=== PATIENT | female | born 1960 | race Caucasian/White ===

== ENCOUNTER → 2017-07-16 | Outpatient (CLI) | payer OTHER | END | disposition home or self-care (01) | LOC: CDC 10:28 | DX: Z01.810 Encounter for preprocedural cardiovascular examination (principal); N60.81 Other benign mammary dysplasias of right breast; R00.0 Tachycardia, unspecified; R94.31 Abnormal electrocardiogram [ECG] [EKG] | CPT/HCPCS: 93000 ==

== ENCOUNTER 2017-07-25 06:04 | Day surgery (SDC) | payer OTHER ==
[~2017-07-25] VITALS: Ht 154.9 cm; Wt 93.4 kg
[~2017-07-25 06:04] MED LIST: COREG6.25 M1 PO; COZAAR50 MG PO; FLEXERIL10 MG PO; GLUCOPHAGE1000 MG PO; HYDROCHLOROTHIA25 MG PO; KADIAN10 MG PO; LIPITOR40 MG PO; SYMBICORT60 INHALAT IH; VITAMIN D310000 UNI1 PO
[2017-07-25 06:39] VITALS: BP 132/73
[2017-07-25] MEDS ORDERED: HYDROCODON-ACE1 EAC7 PO (08:59)
[2017-07-25 10:55] VITALS: BP 127/84
[2017-07-25 11:45] VITALS: BP 137/70
== END 2017-07-25 11:50 | disposition home or self-care (01) ==
LOC: SDC 06:04
PROVIDERS: Surgery
PROC: 0HBT0ZX Excision of Right Breast, Open Approach, Diagnostic (ICD-10-PCS; principal; 2017-07-25)
DX: N60.81 Other benign mammary dysplasias of right breast (principal); E55.9 Vitamin D deficiency, unspecified; M19.90 Unspecified osteoarthritis, unspecified site; E11.9 Type 2 diabetes mellitus without complications; H91.90 Unspecified hearing loss, unspecified ear; I10 Essential (primary) hypertension; M85.80 Other specified disorders of bone density and structure, unspecified site; E66.9 Obesity, unspecified; Z68.37 Body mass index [BMI] 37.0-37.9, adult; F17.210 Nicotine dependence, cigarettes, uncomplicated; Z79.84 Long term (current) use of oral hypoglycemic drugs; Z90.710 Acquired absence of both cervix and uterus; Z80.3 Family history of malignant neoplasm of breast; Z80.1 Family history of malignant neoplasm of trachea, bronchus and lung; Z80.8 Family history of malignant neoplasm of other organs or systems; Z82.49 Family history of ischemic heart disease and other diseases of the circulatory system; Z82.0 Family history of epilepsy and other diseases of the nervous system; Z83.3 Family history of diabetes mellitus
CPT/HCPCS: 82948; 88304; 93005; 94640; J0690; J1170; J2250; S0020